=== PATIENT | female | born 1940 | race Caucasian/White ===

== ENCOUNTER 2020-05-22 13:45 | Emergency (ER) | payer MEDICARE, MEDICAID, SELFPAY ==
--- NOTE | 2020-05-22 13:57 | PC.NURSE ---
DAUGHTER MATT [phone], GRANDDAUGHTER DELROY [phone]
--- NOTE | 2020-05-22 15:14 | ED.PSYCH ---
HPI - Psych General Chief Complaint: Psychiatric Symptoms Stated Complaint: crisis Time Seen by Provider: 05/22/20 17:28 Source: RN notes reviewed Mode of arrival: ambulatory Limitations: other (Alzehemiers) History of Present Illness HPI Narrative: Patient brought to the ED by daughter who states she can no longer take care of patient. Patient has severe Alzheimer's disease. She states patient is becoming more aggressive to family members. Daughter would like mother to be placed in a facility. Patient herself states her daughter sent her to the ED because the daughter has problems with her. Patient denies any physical complaints. Patient states she feels fine. Related Data Home Medications Medication Instructions Recorded Confirmed carvedilol 12.5 mg PO BID 05/22/20 05/22/20 divalproex 250 mg PO DAILY@0800 05/22/20 05/22/20 divalproex 500 mg PO DAILY@1700 05/22/20 05/22/20 escitalopram oxalate 5 mg PO QAM 05/22/20 05/22/20 furosemide 20 mg PO DAILY 05/22/20 05/22/20 lisinopril 10 tab PO DAILY 05/22/20 05/22/20 rivaroxaban [Xarelto] 15 mg PO DAILY@1700 05/22/20 05/22/20 rivastigmine tartrate 3 mg PO BID 05/22/20 05/22/20 trazodone 100 tab PO BEDTIME 05/22/20 05/22/20 Allergies Allergy/AdvReac Type Severity Reaction Status Date / Time penicillamine Allergy Unknown Unknown Verified 05/22/20 15:48 Penicillins [PENICILLINS] Allergy Unknown UNKNOWN Verified 05/22/20 15:48 Review of Systems Review of Systems: Patient denies any physical complaints. Patient denies any chest pain, shortness of breath, headache, abdominal pain, diarrhea, vomiting, coughing, night sweats, pain in extremities, weakness, slurred speech, fever, chills, or recent trauma. Yes all other systems are reviewed and are negative PMFSH Social History Social History Advance Directives: No Advance Directives Information Provided: No Physical Exam Vital Signs: Vital Signs: Vital Signs Temp Pulse Resp BP Pulse Ox 05/22/20 20:00 99.3 F 75 16 98/55 L 99 05/22/20 16:50 97.8 F 64 16 96 05/22/20 15:39 98.6 F 75 18 122/53 L 98 Body Mass Index 26.2 Const: General: cooperative, healthy appearing and comfortable Orientation/consciousness: oriented to person, oriented to place and No oriented to time HENMT: Head: Yes normal to inspection, Yes No palpable skull fracture present, No Lu's sign, No palpable skull fracture and No raccoon eyes Eyes: General: appearance normal, both eyes and all related structures Neck: Neck: Yes normal visual inspection and Yes full ROM Chest: Chest palpation & inspection: normal inspection of the chest and normal palpation of entire chest wall Resp: Effort & Inspection: normal respiratory effort and able to speak in complete sentences Cardio: Jugular venous distension: no JVD Heart sounds: S1 normal heart sound present and S2 normal heart sound present Bruits: no abdominal aortic bruits GI: Inspection: Yes normal to inspection, No abdominal wall ecchymosis, No Abdominal wall edema, No distended and No visible herniation Palpation (GI): No Abdominal aortic bruit present, Soft to palpation, not firm, nontender, no guarding, not rigid and hepatosplenomegaly present Percussion: Yes normal to percussion Skin: General skin exam: no rashes or lesions noted Neuro: General: oriented to person, oriented to place, No oriented to time, gait normal (able to ambulate with walker which she uses) and CN's II-XI intact bilaterally Cranial nerves: Yes CN's II-XII intact bilaterally Extrem: General: Yes normal to inspection and Yes full ROM Psych: Other: Alzeheimers Course Course Course Narrative: Patient will have medical evaluation to make sure there is no UTI or lab abnormality. Patient is at baseline mentally. Most likely patient will be a [facility] psych. Reevaluation(s) Reevaluation #1: Patient head CT came back normal. Patient labs are at baseline. Awaiting for UA and U tox. Case signed out to TREV Glynn. Patient is at baseline mentally. Patient is not any distress Time: 22:05 MDM - Psych Restraints Face to Face Assessment: Face to Face Assessment: Current Situation: After assessment of the patient, a review of the pertinent medical record and a discussion with nursing staff, I feel the patient requires a restrain intervention. Reaction To: [] Medical Condition: [] Behavioral State: [] Continued Need: [] Lab Data Result diagrams: 05/22/20 16:00 05/22/20 16:00 Labs: Lab Results 05/22/20 05/22/20 05/22/20 Range/Units 16:00 16:00 16:00 WBC 7.7 (4.8-10.8) X10*3/uL RBC 4.07 L (4.20-5.50) X10*6/uL Hgb 12.7 (12.0-16.0) g/dl Hct 39.2 (37-47) % MCV 96.3 (80-98) fL MCH 31.2 (27.0-33.0) pg MCHC 32.4 (31.0-35.0) g/dl RDW 14.1 (11.0-16.0) % Plt Count 158 L (160-400) X10*3/uL MPV 12.5 H (9.4-12.3) fL Immature Gran % (Auto) 0.1 (0.0-0.4) % Neut % (Auto) 76.8 H (45-73) % Lymph % (Auto) 9.9 L (20-40) % [facility] % (Auto) 12.5 H (2-11) % Eos % (Auto) 0.3 (0-4) % Baso % (Auto) 0.4 (0-2) % Lymph # (Auto) 0.8 L (1.2-4.9) X10*3/uL [facility] # (Auto) 1.0 (0.1-1.2) X10*3/uL Eos # (Auto) 0.0 (0.0-0.4) X10*3/uL Baso # (Auto) 0.0 (0.0-0.2) X10*3/uL Abs Immat Gran (auto) 0.01 (0.00-0.03) X10*3/uL Absolute Neuts (auto) 5.9 (2.0-8.3) X10*3/uL Absolute Nucleated RBC 0.000 (0.0-0.012) X10*3/uL Nucleated RBC % (auto) 0.0 (0.0-0.2) /100WBC Sodium 140 (135-145) mmol/L Potassium 4.5 (3.3-5.1) mmol/l Chloride 107 (96-108) mmol/L Carbon Dioxide 28 (22-29) mmol/L Anion Gap 10 L (12-20) BUN 26 H (9-16) mg/dL Creatinine 1.16 (0.5-1.4) mg/dL Estim Creat Clear Calc 29.7 Estimated GFR 45 Random Glucose 101 (60-115) mg/dL Calcium 10.3 H (8.4-10.2) mg/dL Total Bilirubin 0.7 (0.0-1.0) mg/dL Direct Bilirubin 0.3 (0.0-0.5) mg/dL AST 39 H (5-31) U/L ALT 18 (0-31) U/L Alkaline Phosphatase 84 (39-117) U/L Total Protein 6.1 L (6.5-8.0) g/dL Albumin 3.5 (3.5-5.0) g/dL Ethyl Alcohol < 10 mg/dL Discharge Plan Discharge Prescriptions: No Action carvedilol 12.5 mg tablet 12.5 mg PO BID RF: 0 divalproex 250 mg tablet,delayed release (DR/EC) 250 mg PO DAILY@0800 RF: 0 divalproex 500 mg tablet,delayed release (DR/EC) 500 mg PO DAILY@1700 RF: 0 trazodone 100 mg tablet 100 tab PO BEDTIME RF: 0 lisinopril 10 mg tablet 10 tab PO DAILY RF: 0 furosemide 20 mg tablet 20 mg PO DAILY RF: 0 rivastigmine tartrate 3 mg capsule 3 mg PO BID RF: 0 escitalopram oxalate 5 mg tablet 5 mg PO QAM RF: 0 Xarelto 15 mg tablet 15 mg PO DAILY@1700 RF: 0
--- NOTE | 2020-05-22 15:14 | PC.NURSE ---
PT DROPPED OFF BY DAUGHTER, LIVES AT HOME WITH HER. DAUGHTER STATED SHE CAN NO LONGER TAKE CARE OF HER MOTHER AT HOME, D/T INC AGGRESSIVE AND ERRATIC BEHAVIOUR. PT HX HTN, PACEMAKER, ALZHEIMERS DEMENTIA. A&OX PERSON AND PLACE. UNSTEADY ON HER FEET, DAUGHTER STATES SHE SHOULD BE USING A WALKER BUT PT REFUSES TO DO SO.
[2020-05-22 15:39] VITALS: BP 122/53; PULSE 75; RESP 18; TEMP 37; O2SAT 98; BMI 26.2
[2020-05-22 16:05] LABS: MANUAL DIFF FLAG NO
[2020-05-22 16:06] LABS: Basophils Percent Auto 0.4 % (0-2); Eosinophils Percent Auto 0.3 % (0-4); Hematocrit 39.2 % (37-47); Hemoglobin 12.7 g/dl (12.0-16.0); Imm Gran Abs Auto 0.01 X10*3/uL (0.00-0.03); Imm Gran Pct Auto 0.1 % (0.0-0.4); Lymphocytes Absolute Auto 0.8 X10*3/uL (1.2-4.9); Lymphocytes Percent Auto 9.9 % (20-40); Mean Corpuscular HGB Conc 32.4 g/dl (31.0-35.0); Mean Corpuscular Hemoglobin 31.2 pg (27.0-33.0); Mean Corpuscular Volume 96.3 fL (80-98); Mean Platelet Volume 12.5 fL (9.4-12.3); Monocytes Percent Auto 12.5 % (2-11); Neutrophils Absolute Auto 5.9 X10*3/uL (2.0-8.3); Neutrophils Percent Auto 76.8 % (45-73); Platelet Count 158 X10*3/uL (160-400); Red Blood Count 4.07 X10*6/uL (4.20-5.50); Red Cell Distribution Width 14.1 % (11.0-16.0); White Blood Count 7.7 X10*3/uL (4.8-10.8)
[2020-05-22 16:29] LABS: Ethanol < 10 mg/dL
[2020-05-22 16:36] LABS: Alanine Aminotransferase 18 U/L (0-31); Albumin Level 3.5 g/dL (3.5-5.0); Alkaline Phosphatase 84 U/L (39-117); Anion Gap 10 (12-20); Aspartate Amino Transferase 39 U/L (5-31); Bilirubin Direct 0.3 mg/dL (0.0-0.5); Bilirubin Total 0.7 mg/dL (0.0-1.0); Blood Urea Nitrogen 26 mg/dL (9-16); Calcium 10.3 mg/dL (8.4-10.2); Carbon Dioxide 28 mmol/L (22-29); Chloride 107 mmol/L (96-108); Creatinine Clr Calc Pharmacy 29.7; Estimated Glomerular Filt Rate 45; Glucose Random 101 mg/dL (60-115); Potassium 4.5 mmol/l (3.3-5.1); Sodium 140 mmol/L (135-145); Total Protein 6.1 g/dL (6.5-8.0)
[2020-05-22 16:50] VITALS: PULSE 64; RESP 16; TEMP 36.6; O2SAT 96
--- NOTE | 2020-05-22 17:28 | CT_ITS ---
EXAMINATION: CT HEAD WITHOUT CONTRAST CLINICAL INFORMATION: Confusion. COMPARISON: July 31, 2019. TECHNIQUE: Contiguous helical images of the brain were obtained without IV contrast. Multiplanar reconstructions were performed. The examination is significantly limited due to extensive patient motion artifact. DLP: 999 mGy-cm. FINDINGS: There are no pathologic extra-axial fluid collections. The lateral, third, fourth ventricles are prominent, though stable, age-appropriate and concordant with the appearance of the sulci. There is no evidence for acute intraparenchymal hemorrhage or infarct. There is periventricular low-attenuation indicative of small vessel disease. There is neither mass nor mass effect. There is no shift of midline structures. The paranasal sinuses and mastoid air cells are clear. There are no osseous lesions. IMPRESSION: Limited examination secondary to patient motion artifact; however, no evidence for acute intracranial injury. Automated exposure control (Care Dose) Adjustment of the mA and/or kv according to patient size (this includes techniques or standardized protocols for targeted exams where dose is matched to indication / reason for exam; i.e. extremities or head).
[2020-05-22 20:00] VITALS: BP 98/55; PULSE 75; RESP 16; TEMP 37.4; O2SAT 99
--- NOTE | 2020-05-22 20:38 | PC.NURSE ---
called daughter and left message, need pharmacy and list of medications. pt ate apple sauce, pudding and oatmeal. pt drank 8 oz of water. no trouble swallowing.
--- NOTE | 2020-05-22 21:18 | PC.NURSE ---
pharmacy at bedside for med rec. pt sleeping. pharmacy able to access medications and took family contacts.
[2020-05-23] VITALS (8 sets, daily range): BP systolic 105–132; BP diastolic 39–64; PULSE 70–94; RESP 16–18; TEMP 36.3–36.7; O2SAT 73–98
[2020-05-23 00:26] LABS: Glucose Urine UA NEG (NEG); Leukocyte Esterase Urine 1+ (NEG); Nitrite Urine NEG (NEG); PH 7.5 (5.0-8.0); Urine Blood TRACE (NEG); Urine Ketones NEG (NEG); Urine Protein 1+ MG/DL (NEG-TRACE)
[2020-05-23 00:32] LABS: Appearance Urine CLOUDY; Color Urine YELLOW
[2020-05-23 00:44] LABS: Amorphous Sediment Urine 3+ /LPF; RBC Urine 0-2 /HPF (0); Squamous Epithelial Cell Urine TRACE /LPF
[2020-05-23 01:00] LABS: Amphetamine Screen Urine Not Detected (Not Detect); Barbiturates, Urine Not Detected (Not Detect); Benzodiazepines Screen Urine Not Detected (Not Detect); Cannabinoid Screen Urine Not Detected (Not Detect); Cocaine Screen Urine Not Detected (Not Detect); Opiate Screen Urine Not Detected (Not Detect); Phencyclidine Screen Urine Not Detected (Not Detect)
--- NOTE | 2020-05-23 01:08 | PC.NURSE ---
pt ambulatory to bathroom with steady gait x 2. pt cooperative and sleeping. try to move to hospital bed.
--- NOTE | 2020-05-23 06:36 | PC.NURSE ---
pt moved to hospital bed, slept most of the night. summary faxed to [facility].
--- NOTE | 2020-05-23 07:34 | PC.NURSE ---
[facility] called to ensure fax was recieved, N states clinician will be out to assess when available.
--- NOTE | 2020-05-23 09:42 | PC.NURSE ---
Pt ambulatory to bathroom with assist of one, voided and had bowel movement. N seen pt and states pt will be an [facility] follow up ([facility]) as family is unable to be reached at home for further details. Pt was seen by [facility] over summer and per N family took pt home x 2 AMA [address] inability to [address] her. Pt remains calm/cooperative, pleasant.
--- NOTE | 2020-05-23 11:03 | PC.NURSE ---
PATIENT SLEEPING, WOKE TO VERBAL STIMULUS, ALERT TO SELF, WILL CONTINUE TO MONITOR.
--- NOTE | 2020-05-23 12:14 | PC.NURSE ---
patient asking for something to drink, pt helped with some apple juice, vitals obtained/stable, pt calm/cooporative at this time, will continue to monitor.
--- NOTE | 2020-05-23 17:45 | PC.NURSE ---
patient alert to self, no c/o pain or discomfort, pt awaiting dinner to arrive, pt in hospital bed with bed alarm on for safety, will continue to monitor.
--- NOTE | 2020-05-23 19:31 | PC.NURSE ---
patient ambulated with assist to bathroom, vss, ate 100% of dinner, will continue to monitor.
--- NOTE | 2020-05-23 21:25 | PC.NURSE ---
patient currently sleeping, rr 18, will continue to monitor.
--- NOTE | 2020-05-23 23:30 | PC.NURSE ---
PATIENT FREQUENTLY GETTING OUT OF BED. GAMBIAN SPEAKING ONLY. SPOKE WITH THIS NURSE AND STATED THAT SHE NEEDED TO USE BATHROOM. AMBULATED TO BATHROOM WITH ONE ASSIST. PATIENT HAS A SHUFFLING GAIT. BRIEF REMOVED IT WAS SOILED. GIVEN WARM BLANKET ONCE BACK IN BED.
[2020-05-24] VITALS (11 sets, daily range): BP systolic 98–124; BP diastolic 41–59; PULSE 71–80; RESP 14–16; TEMP 36.4–37.1; O2SAT 96–98
--- NOTE | 2020-05-24 07:15 | PC.NURSE ---
report taken from Lakisha VALE. pt resting comfortably in bed. breakfast provided. vitals updated. will speak with server manager when they arrive regarding plan for patient.
[2020-05-24] MEDS: carvediloL 12.5 MG TABLET PO (08:19)
[2020-05-24] MEDS: Furosemide 20 MG TABLET PO (08:21)
[2020-05-24] MEDS: Escitalopram Oxalate 5 MG TABLET PO (08:38)
--- NOTE | 2020-05-24 10:58 | MHC.CARE ---
Pt is pending re-evalaution by [facility] at this time when t/w called the [facility] team was unaware of pt being a bedsearch. CARE team contacted [facility] to inquire on status and to obtain a copy of the assessment. At 1035 spoke maulik Diaz who consulted two supervisors (Sage and Clayton) who would not get on phone and stated that the plan for pt is actually not geripsych...the dispo is that pt be seen today . T/w asked for a copy and again was told after multiple holds via phone that the clinician who is coming to see this pt will give it to you . T/w strongly encouraged this collateral for continuity of care as well as length of stay boarding in ED. CARE team alerted land development manager of this case likely being referred when screened out due to cognitive disorder (dementia). Per chart review pt presented from family home due to agitation likely in the context of her underlying dx and family has in the past taken pt AMA for similar precips. Per Case management, pt has not yet been referred to their team and this is likely based on the need for [facility] to make a formal disposition. Pt would benefit from further consultation with LOCAL DRIVER if dispo becomes unclear due to cognitive concerns.
--- NOTE | 2020-05-24 13:43 | MHC.CM.ED ---
THIS MANUFACTURING QUALITY ENGINEER AND FIELD TEST ENGINEER SPOKE WITH HCP/DAUGHTER ([phone]) MATT. DAUGHTER IS AGREEABLE TO SNF PLACEMENT AT [facility]. CURRENTLY AWAITING COVID SWAB. CASE MANAGMEENT FOLLOWING FOR DC TIME. AWARE.
[2020-05-24 15:07] LABS: SARS COV2 PCR INHOUSE NEGATIVE (Negative)
== END 2020-05-24 18:04 | disposition skilled nursing facility (03) ==
PROVIDERS: Physician Assistant; Emergency Provider Emergency Medicine; PCP Family Medicine
DX: G30.9 Alzheimer's disease, unspecified (principal); Z79.899 Other long term (current) drug therapy; Z20.828 Contact with and (suspected) exposure to other viral communicable diseases
CPT/HCPCS: 36415; 70450; 80053; 80076; 80307; 80320; 81001; 82248; 85025; 87086; 87635; 99285